=== PATIENT | female | born 1950 | race Two or more races ===

== ENCOUNTER 2017-03-11 13:20 | Inpatient (IN) | payer BC, OTHER ==
[~2017-03-11] VITALS: Ht 157.5 cm; Wt 57.6 kg
[~2017-03-11 13:20] MED LIST: SUMA25TA10 PO
[2017-03-11] MEDS ORDERED: IBUPROFEN 400 MG TABLET ONE (13:43)
[2017-03-11] MEDS ORDERED: IBUPROFEN 400 MG TABLET PO ONE (14:00)
--- NOTE | 2017-03-11 15:48 | NUR ---
NEW IV STARTED ON LAC, 20 G. BLOOD DRAWN AND SEN TO LAB.
--- NOTE | 2017-03-11 15:50 | NUR ---
SPOKE TO DAYAN/SARAH, ABOUT UNDOING DEPARTURE FORWARDING TO [facility]
[2017-03-11] MEDS ORDERED: ONDANSETRON HCL/PF 4 MG/2 ML VIAL ONE (15:54)
[2017-03-11] MEDS ORDERED: HYDROMORPHONE INJ 2 MG/ML DISP.SYRIN ONE (15:55)
[2017-03-11 15:59] LABS: BASOPHILS # (AUTO) 0.1 /CMM (0.0-0.2); BASOPHILS % (AUTO) 0.7 % (0.0-2.0); EOSINOPHILS # (AUTO) 0.1 /CMM (0.0-0.7); EOSINOPHILS % (AUTO) 0.7 % (0.0-6.0); HEMATOCRIT 40 % (33-45); HEMOGLOBIN 13.3 g/dL (11.5-14.8); LYMPHOCYTES # (AUTO) 1.5 /CMM (0.8-4.8); LYMPHOCYTES % (AUTO) 21.6 % (20.0-44.0); MEAN CORPUSCULAR HEMOGLOBIN 30 PG (26.0-33.0); MEAN CORPUSCULAR HGB CONC 33 g/dl (31.0-36.0); MEAN CORPUSCULAR VOLUME 90 fL (82-100); MONOCYTES # (AUTO) 0.3 /CMM (0.1-1.30); MONOCYTES % (AUTO) 4.8 % (2.0-12.0); NEUTROPHILS # (AUTO) 5.2 /CMM (1.8-8.9); NEUTROPHILS % (AUTO) 72.2 % (43.0-81.0); PLATELET COUNT (AUTO) 253 /CMM (150-450); RDW COEFFICIENT OF VARIATION 13.4 (11.5-15.0); RED BLOOD CELL COUNT(AUTO) 4.47 MIL/uL (4.0-5.2); WHITE BLOOD COUNT (AUTO) 7.2 K/uL (4.3-11.0)
[2017-03-11] MEDS ORDERED: HYDROMORPHONE 1 MG/1 ML DISP.SYRIN IV ONE (16:00)
[2017-03-11] MEDS ORDERED: ONDANSETRON HCL/PF 4 MG/2 ML VIAL IV ONE (16:00)
--- NOTE | 2017-03-11 16:02 | NUR ---
BED-MS 101
[2017-03-11 16:07] LABS: INR 0.94 (0.87-1.13); PROTHROMBIN TIME 9.8 SECS (9.5-12.7)
--- NOTE | 2017-03-11 16:23 | NUR ---
REPORT GIVEN TO NASEEM WEEKS FOR ADMISSION.
[2017-03-11 16:24] LABS: CALCIUM, SERUM 9.4 mg/dL (8.5-10.1); CREATININE 0.6 mg/dL (0.6-1.3); POTASSIUM 4.2 mmol/L (3.5-5.1)
--- NOTE | 2017-03-11 16:40 | NUR ---
PATIENT TRANSPORTED TO ROOM 101 VIA WHEELCHAIR FOR ADMISSION.
[2017-03-11] MEDS ORDERED: HYDROCODONE/APAP 5/325MG 1 EACH TABLET PO PRN (17:00)
[2017-03-11] MEDS ORDERED: ACETAMINOPHEN 325 MG TABLET PO PRN (17:00)
[2017-03-11] MEDS ORDERED: MAGNESIUM HYDROXIDE 30 ML UDC PO PRN (17:00)
[2017-03-11] MEDS ORDERED: MAG HYDROX/AL HYDROX/SIMETH 30 ML UDC PO PRN (17:00)
[2017-03-11] MEDS ORDERED: ZOLPIDEM TARTRATE 5 MG TABLET PO PRN (17:00)
[2017-03-11] MEDS ORDERED: Z GUARD REMEDY 2 OZ OINT TP PRN (17:00)
[2017-03-11] MEDS ORDERED: ONDANSETRON HCL/PF 4 MG/2 ML VIAL IVP PRN (17:00)
--- NOTE | 2017-03-11 17:00 | NUR ---
RN INITIAL/ NOTE PATIENT ARRIVED TO THE [facility] IN WHEEL CHAIR WITH RIGHT ARM IN SLING WITH SOLF CAST APPLIED , PATIENT SCHEDULED FOR 0600AM ORIF SURGERY WITH PENDING DISCHARGE , PATIENT IS ALERT AND ORIENTED WITH MILD PAIN EXPRESSED. PATIENT REQUESTING LAB RESULTS , RN PROVIDED THE PATIENT WITH REQUESTED MATERIAL . PATIENT ALSO REORIENT TO THE ROOM PATIENT STATES SHE IS A FULL CODE OF NOW . PATIENT IS ALERT AND ORIENTED X4 , IN BED ,FAMILY AT BEDSIDE - DAUGHTER AND , TO SIGN SURGERY CONSENT. RN CONTACTED RT TO PERFORM EKG . RN WILL CONTINUE TO FOLLOW THROUGHOUT THE REMAINDER OF SHIFT.
[2017-03-11] MEDS: HYDROCODONE/APAP 10/325MG 1 EA TABLET PO PRN (18:16)
--- NOTE | 2017-03-11 18:33 | NUR ---
RN CLOSING NOTE PATIENT REMAINS WITH OUT ISSUE PATIENT REQUESTING TO SPEAK WITH SOON CHARGE NURSE , RN NOTIFIED THE CHARGE NURSE OF THE PATIENT WISHES HOWEVER THE CHARGE NURSE IS CURRENTLY BUSY AND WILL GO TO SPEAK WITH PATIENT SOON. PATIENT STILL REQUESTING EKG. RN CONTACTED RT AGAIN IN REGARDS TO OBTAINING EKG. RT ACKNOWLEDGED THE NEED FOR THIS PROCEDURE. RN ATTEMPTED FULL BODY ASSESSMENT HOWEVER PATIENT REFUSED STATING THAT THE MD HAS ALREADY ASSESSED HER , VIBRATION TECHNICIAN IN THE ROOM TO WITNESS ATTEMPT. VITAL SIGNS ASSESSED AND WITHIN NORMAL LIMITS . RN WILL ENDORSE REMAINDER OF CARE TO THE PM RN
--- NOTE | 2017-03-11 19:05 | NUR ---
RN OPENING NOTES RECEIVED REPORT FROM TYRON WEEKS. PATIENT A/A/O X4, ABLE TO MAKE NEEDS KNOWN. BREATHING EVEN & UNLABORED, DENIES ANY SOB OR DIFFICULTY BREATHING. PULSES PRESENT. ON ROOM AIR. LEFT AC IV #20 INTACT & PATENT W/ DRESSING CDI & SALINE LOCKED. RIGHT WRIST SPLINT IN PLACE FOR IMMOBILIZATION. CAP REFILL < 3 SECONDS @ AFFECTED SITE. C/O PAIN @ SITE. PATIENT IS ABLE TO AMBULATE W/ BRP. SAFETY MEASURES IN PLACE W/ SIDE RAILS UP, BED LOCKED IN LOWEST POSITION & CALL LIGHT WITHIN REACH. WILL CONTINUE TO MONITOR.
[2017-03-11 20:00] VITALS: BP 107/66
[2017-03-11] MEDS ORDERED: MORPHINE SULFATE INJ 4 MG/ML DISP.SYRIN ONE (20:05)
[2017-03-11] MEDS: MORPHINE SULFATE INJ 2 MG/ML DISP.SYRIN IV PRN (20:12)
--- NOTE | 2017-03-11 20:22 | NUR ---
RN NOTES MORPHINE 4MG/1ML TAKEN OUT FROM OMNICELL & WASTED 2 MG/0.5ML W/ CHARGE NURSE. PATIENT MED ORDER ONLY 2MG. ADMINISTERED 2MG/0.5ML TO PATIENT.
[2017-03-12] MEDS ORDERED: MORPHINE SULFATE INJ 4 MG/ML DISP.SYRIN ONE (03:41)
[2017-03-12] MEDS: HYDROCODONE/APAP 10/325MG 1 EA TABLET PO PRN (03:44)
[2017-03-12] MEDS: MORPHINE SULFATE INJ 2 MG/ML DISP.SYRIN IV PRN (03:50)
--- NOTE | 2017-03-12 03:51 | NUR ---
RN NOTES MORPHINE 4MG/1ML TAKEN OUT AGAIN FROM OMNICELL & WASTED 2 MG/0.5ML W/ CHARGE NURSE. PATIENT MED ORDER ONLY 2MG. ADMINISTERED 2MG/0.5ML TO PATIENT.
[2017-03-12 04:00] VITALS: BP 112/63
--- NOTE | 2017-03-12 06:10 | NUR ---
RN NOTES PATIENT LEFT FOR ORIF SURGERY.
[2017-03-12] MEDS ORDERED: MIDAZOLAM HCL 2 MG/2ML VIAL ONE (06:21)
[2017-03-12] MEDS ORDERED: FENTANYL PF 100MCG/2ML AMPUL ONE (06:21)
[2017-03-12] MEDS ORDERED: BUPIVACAINE 0.25% 75 MG/30 ML VIAL ONE (06:22)
[2017-03-12] MEDS ORDERED: CLINDAMYCIN 900 MG/6 ML VIAL ONE (06:22)
[2017-03-12] MEDS ORDERED: BACITRACIN 50000 UNITS/VIAL ONE (06:23)
[2017-03-12] MEDS ORDERED: ANESTHESIA TRAY IN PYXIS 1 EA TRAY MC ONE (06:26)
[2017-03-12] MEDS ORDERED: SCOPOLAMINE HBR 1 EA PATCH.TD72 TD ONE (06:39)
[2017-03-12] MEDS ORDERED: BUPIVACAINE 0.5 % PF 150 MG/30 ML VIAL ONE (06:40)
[2017-03-12 08:00] VITALS: BP 122/58
--- NOTE | 2017-03-12 08:00 | NUR ---
PATIENT RECEIVED FROM PACU S/P ORIF RIGHT WRIST. SAFETY MEASURES OBSERVED. ELEVATE RIGHT ARM ON PILLOWS. DENIES NAUSEA VOMITING. DENIES PAIN AT THIS TIME. NOTED NUMBNESS & SWELLING ON FINGERS RIGHT HAND. WILL CARRIED OUT DR. MARIA'S ORDERS. FAXED TO PHARMACY. CALL LIGHT WITHIN REACH. WILL CONTINUE TO MONITOR.
[2017-03-12 08:15] VITALS: BP 128/60
[2017-03-12 08:30] VITALS: BP 121/56
[2017-03-12] MEDS ORDERED: HYDROMORPHONE INJ 2 MG/ML DISP.SYRIN IV PRN (08:30)
[2017-03-12] MEDS ORDERED: oxyCODONE/APAP (5/325 MG) 1 UDTAB TABLET PO PRN ×2 (09:30)
--- NOTE | 2017-03-12 12:50 | NUR ---
RN NOTES: (DISCHARGE) PATIENT DISCHARGE TO HOME IN STABLE CONDITION ALERT AWAKE OX4. ON ROOM AIR, BREATHING PATTERN REGULAR & UNLABORED. SURGICAL DRESSING INTACT ON RIGHT LOWER ARM S/P ORIF RIGHT WRIST DONE TODAY AM. DENIES PAIN & DISCOMFORT AT THIS TIME STILL HAVE EFFECT FROM BLOCK ANESTHESIA. NOTED NUMBNESS ON RIGHT ARM. DISCHARGE INSTRUCTIONS GIVEN TO THE PATIENT, VERBALIZE TO UNDERSTAND. PRESCRIPTION/DISCHARGE PACKAGE GIVEN TO THE PATIENT. LEFT WITH WITH ALL BELONGINGS, IN STABLE CONDITION WITH VITAL SIGNS WNL. IV CATHETER REMOVED, APPLIED PRESSURE DRESSING. DISCHARGE PER DR. MARIA'S ORDERS PLACED IN PATIENT CHART.
== END 2017-03-12 12:40 | disposition home or self-care (01) | DRG 512 ==
LOC: ER 13:20 → MEDSG1 16:17
PROC: 0PSH04Z Reposition Right Radius with Internal Fixation Device, Open Approach (ICD-10-PCS; principal; 2017-03-12 06:30)
DX: S52.501A Unspecified fracture of the lower end of right radius, initial encounter for closed fracture (principal); G43.909 Migraine, unspecified, not intractable, without status migrainosus; S52.614A Nondisplaced fracture of right ulna styloid process, initial encounter for closed fracture; W01.0XXA Fall on same level from slipping, tripping and stumbling without subsequent striking against object, initial encounter; Y93.9 Activity, unspecified; Y92.89 Other specified places as the place of occurrence of the external cause; Y93.01 Activity, walking, marching and hiking; Z98.890 Other specified postprocedural states; Z88.0 Allergy status to penicillin
CPT/HCPCS: 36415; 71010-TC; 73110; 73552; 80048-TC; 85025-TC; 85730-TC; A4606; J1170; J2250; J2270; J2405; J3010; J3490; Z7610

== ENCOUNTER 2017-10-08 11:44 | Outpatient (CLI) | payer BC | END 2017-10-08 23:59 | disposition home or self-care (01) | LOC: RAD 11:44 → EDSTATUS 10-19 09:32 | PROVIDERS: ATTEND Legal Medicine | DX: M77.8 Other enthesopathies, not elsewhere classified (principal); R06.02 Shortness of breath | CPT/HCPCS: 71046 ==

== ENCOUNTER 2018-08-26 05:17 | Day surgery (SDC) | payer OTHER ==
[2018-08-26] MEDS ORDERED: ANESTHESIA TRAY IN PYXIS 1 EA TRAY MC ONE (06:18)
[2018-08-26] MEDS ORDERED: BUPIVACAINE 0.5 % PF 150 MG/30 ML VIAL ONE (06:19)
[2018-08-26] MEDS ORDERED: CLINDAMYCIN 900 MG/6 ML VIAL ONE (06:45)
[2018-08-26] MEDS ORDERED: HYDROMORPHONE INJ 2 MG/ML DISP.SYRIN ONE (07:27)
[2018-08-26] MEDS ORDERED: FENTANYL PF 100MCG/2ML AMPUL ONE (07:42)
== END 2018-08-26 08:50 | disposition home or self-care (01) ==
LOC: DS 05:17
PROVIDERS: ATTEND Specialist
DX: G56.01 Carpal tunnel syndrome, right upper limb (principal); Z88.0 Allergy status to penicillin; Z79.899 Other long term (current) drug therapy; K21.9 Gastro-esophageal reflux disease without esophagitis
CPT/HCPCS: 64721; J1170; J3010; J3490; J7120 ×2; A4217; A6402; J1885; J2405; J2704